=== PATIENT | male | born 1975 | race Caucasian/White ===

== ENCOUNTER 2016-11-07 16:48 | Emergency (ER) | payer OTHER ==
[~2016-11-07] VITALS: Wt 122.5 kg
[~2016-11-07 16:48] MED LIST: AMOXICILLIN500 MG PO; AUGMENTIN 875875 MG PO; CYCLOBENZAPRINE10 MG PO; FLONASE 0.05% 121 EA NAS; MOTRIN800 MG PO; Motrin,Rufen800 MG PO; NKHM; NORCO 10-325 T1 EACH PO; OMEPRAZOLE40 MG PO; PREDNISONE10 MG PO; TYLENOL SINUS 31 TAB; VICODIN 5/500 505 MG PO; VOLTAREN50 M1 PO
[2016-11-07] MEDS ORDERED: 'PARAFON FORTE500 M1 PO (17:20)
[2016-11-07] MEDS ORDERED: NAPROSYN500 MG PO (17:20)
[2016-12-12] MEDS ORDERED: CLARITIN10 MG PO (13:29)
[2016-12-12] MEDS ORDERED: PREDNISONE10 MG PO (13:29)
[2016-12-12] MEDS ORDERED: FLONASE ALLERG9.9 ML NAS (13:29)
[2016-12-12] MEDS ORDERED: ROBITUSSIN AC 110 ML PO (13:29)
[2016-12-13] MEDS ORDERED: VITAMIN D5000 I3 PO (11:10)
== END 2016-11-07 18:04 | disposition home or self-care (01) ==
LOC: ED 16:48
DX: M54.5 Low back pain (principal); I10 Essential (primary) hypertension

== ENCOUNTER 2017-11-18 14:26 | Emergency (ER) | payer OTHER ==
[~2017-11-18 14:26] MED LIST changes: +'PARAFON FORTE500 M1 PO; +CLARITIN10 MG PO; +FLONASE ALLERG9.9 ML NAS; +NAPROSYN500 MG PO; +ROBITUSSIN AC 110 ML PO; +VITAMIN D5000 I3 PO
== END 2017-11-18 15:43 | disposition home or self-care (01) ==
LOC: ED 14:26
DX: M25.562 Pain in left knee (principal)

== ENCOUNTER 2018-02-09 20:05 | Emergency (ER) | payer BC, OTHER ==
[~2018-02-09] VITALS: Ht 177.8 cm; Wt 127.5 kg
[2018-02-09] MEDS ORDERED: AMOXICILLIN500 M2 PO (20:39)
== END 2018-02-09 21:08 | disposition home or self-care (01) ==
LOC: ED 20:05
DX: J02.0 Streptococcal pharyngitis (principal)

== ENCOUNTER 2018-07-29 17:18 | Emergency (ER) | payer BC, OTHER ==
[~2018-07-29] VITALS: Wt 122.5 kg
[~2018-07-29 17:18] MED LIST changes: +AMOXICILLIN500 M2 PO
[2018-07-29 17:53] LABS: BASO # 0.1 10*3/uL (0.0-0.1); BASO % 0.5 % (0.0-1.0); EOS # 0.3 10*3/uL (0.0-0.4); EOS % 2.5 % (1.0-4.0); HEMATOCRIT 47.4 % (42.0-52.0); HEMOGLOBIN 16.8 g/dl (14.0-18.0); LYMPH # 3.3 10*3/uL (1.3-4.4); LYMPH % 29.4 % (27.0-41.0); MEAN CORPUSCULAR HGB 30.5 pg (27.0-31.0); MEAN CORPUSCULAR HGB CONC 35.4 g/dl (33.0-37.0); MONO # 0.6 10*3/uL (0.1-1.0); MONO % 5.7 % (3.0-9.0); NEUT # 6.8 10*3/uL (2.3-7.9); NEUT % 61.6 % (47.0-73.0); PLATELET COUNT AUTOMATED 231 10*3/uL (130-400); RED BLOOD COUNT 5.51 10*6/uL (4.50-5.90); RED CELL DISTRI WIDTH 13.1 % (0-14.5); WHITE BLOOD COUNT 11.1 10*3/uL (4.8-10.8)
[2018-07-29 18:08] LABS: ALBUMIN 3.7 gm/dl (3.1-4.5); ALKALINE PHOSPHATASE 76 U/L (45-117); BUN 10 mg/dl (7-24); CHLORIDE 108 mmol/L (98-107); CREATININE 1.01 mg/dL (0.70-1.30); LIPASE 135 U/L (73-393); POTASSIUM 4.1 mmol/L (3.5-5.1); SGOT/AST 28 IU/L (3-35); SGPT/ALT 57 U/L (12-78); SODIUM 140 mmol/L (136-145); TOTAL PROTEIN 7.7 gm/dL (6.4-8.2)
[2018-07-29] MEDS ORDERED: DOXYCYCLINE100 M3 PO (19:45)
[2018-07-29] MEDS ORDERED: TESSALON PERLE100 M1 PO (19:45)
[2018-07-29] MEDS ORDERED: PROVENTIL HFA6.7 GM INH (19:45)
[2018-07-29] MEDS ORDERED: PREDNISONE20 M1 PO (19:45)
== END 2018-07-29 19:46 | disposition home or self-care (01) ==
LOC: ED 17:18
PROVIDERS: Physician Assistant
DX: J40 Bronchitis, not specified as acute or chronic (principal)

== ENCOUNTER 2018-11-30 18:04 | Emergency (ER) | payer BC ==
[~2018-11-30 18:04] MED LIST changes: +DOXYCYCLINE100 M3 PO; +PREDNISONE20 M1 PO; +PROVENTIL HFA6.7 GM INH; +TESSALON PERLE100 M1 PO
[2018-11-30] MEDS ORDERED: AUGMENTIN 875875 MG PO (18:18)
== END 2018-11-30 18:26 | disposition home or self-care (01) ==
LOC: ED 18:04
DX: J32.1 Chronic frontal sinusitis (principal); H66.92 Otitis media, unspecified, left ear; F17.200 Nicotine dependence, unspecified, uncomplicated

== ENCOUNTER 2020-08-02 18:59 | Emergency (ER) | payer SELFPAY ==
[~2020-08-02] VITALS: Ht 177.8 cm; Wt 117.9 kg
[2020-08-02] MEDS ORDERED: ATORVASTATIN CA10 M1 PO (19:10)
[2020-08-02] MEDS ORDERED: HYDROCHLOROTHIA25 M1 PO (19:11)
[2020-08-02] MEDS ORDERED: Synthroid,Levo25 MCG PO (19:11)
[2020-08-02] MEDS ORDERED: METFORMIN XR500 MG PO (19:11)
== END 2020-08-02 21:13 | disposition home or self-care (01) ==
LOC: ED 18:59
DX: S62.92XA Unspecified fracture of left hand, initial encounter for closed fracture (principal); Z79.899 Other long term (current) drug therapy; W22.8XXA Striking against or struck by other objects, initial encounter; Y93.89 Activity, other specified; Y92.89 Other specified places as the place of occurrence of the external cause; Y99.2 Volunteer activity

== ENCOUNTER → 2020-08-10 | Outpatient (CLI) | payer BC ==
[~2020-08-10] MED LIST changes: +ATORVASTATIN CA10 M1 PO; +HYDROCHLOROTHIA25 M1 PO; +METFORMIN XR500 MG PO; +Synthroid,Levo25 MCG PO
== END | disposition home or self-care (01) ==
LOC: ORTHO 01:47
PROVIDERS: ATTEND Orthopaedic Surgery
DX: S62.357D Nondisplaced fracture of shaft of fifth metacarpal bone, left hand, subsequent encounter for fracture with routine healing (principal); X58.XXXD Exposure to other specified factors, subsequent encounter

== ENCOUNTER → 2020-08-25 | Outpatient (CLI) | payer BC | END | disposition home or self-care (01) | LOC: ORTHO 08-24 01:20 | PROVIDERS: ATTEND Orthopaedic Surgery | DX: S62.357D Nondisplaced fracture of shaft of fifth metacarpal bone, left hand, subsequent encounter for fracture with routine healing (principal); X58.XXXD Exposure to other specified factors, subsequent encounter ==

== ENCOUNTER 2021-06-13 17:47 | Emergency (ER) | payer BC ==
[~2021-06-13] VITALS: Wt 124.7 kg
== END 2021-06-13 21:16 | disposition home or self-care (01) ==
LOC: ED 17:47
DX: M79.672 Pain in left foot (principal); Z79.899 Other long term (current) drug therapy

== ENCOUNTER 2024-03-30 16:10 | Emergency (ER) | payer SELFPAY ==
[~2024-03-30] VITALS: Ht 177.8 cm; Wt 136.1 kg
== END 2024-03-30 19:28 | disposition left against medical advice (07) ==
LOC: ED 16:10
DX: H57.89 Other specified disorders of eye and adnexa (principal); Z53.21 Procedure and treatment not carried out due to patient leaving prior to being seen by health care provider

== ENCOUNTER → 2024-12-28 | Outpatient (CLI) | payer SELFPAY | END | disposition home or self-care (01) | LOC: RAD 11:50 | PROVIDERS: ATTEND Nurse Practitioner Family | DX: R05.3 Chronic cough (principal) ==

== ENCOUNTER 2025-01-26 10:21 | Emergency (ER) | payer OTHER ==
[~2025-01-26] VITALS: Wt 136.1 kg
[2025-01-26] MEDS ORDERED: Tdap Vaccine 0.5 ML SYR (Adult Vaccine) IM ONE (10:40)
[2025-01-26] MEDS ORDERED: CEPHALEXIN 500 MG CAP PO ONE (10:40)
[2025-01-26] MEDS ORDERED: CEPHALEXIN500 M1 PO (10:43)
[2025-01-26] MEDS ORDERED: Lidocaine Hydrochloride 30 ML VIAL IM ONE (10:45)
== END 2025-01-26 11:44 | disposition home or self-care (01) ==
LOC: ED 10:21
DX: S61.211A Laceration without foreign body of left index finger without damage to nail, initial encounter (principal); S61.213A Laceration without foreign body of left middle finger without damage to nail, initial encounter; I10 Essential (primary) hypertension; E11.9 Type 2 diabetes mellitus without complications; K21.9 Gastro-esophageal reflux disease without esophagitis; E78.00 Pure hypercholesterolemia, unspecified; Z79.899 Other long term (current) drug therapy; W31.89XA Contact with other specified machinery, initial encounter; Y93.89 Activity, other specified; Y92.89 Other specified places as the place of occurrence of the external cause; Y99.8 Other external cause status

== ENCOUNTER → 2025-06-15 | Outpatient (CLI) | payer OTHER ==
[~2025-06-15] MED LIST changes: +CEPHALEXIN500 M1 PO
[2025-06-15 13:54] LABS: BASO # 0.1 10*3/uL (0.0-0.1); BASO % 0.7 % (0.0-1.0); EOS # 0.5 10*3/uL (0.0-0.4); EOS % 5.0 % (1.0-4.0); MEAN CELL VOLUME 88.7 fl (80.0-94.0); MEAN CORPUSCULAR HGB 30.5 pg (27.0-31.0); MEAN PLATELET VOLUME 10.1 fl (9.6-12.3); MONO # 0.4 10*3/uL (0.1-1.0); MONO % 3.8 % (3.0-9.0); NEUT # 6.1 10*3/uL (2.3-7.9); NEUT % 63.0 % (47.0-73.0); NUCLEATED RED BLOOD CELL 0.0 % (0.0-0.0); NUCLEATED RED BLOOD CELL 0.0 10*3/uL (0.0-0.0); PLATELET COUNT AUTOMATED 267 10*3/uL (130-400); RED CELL DISTRI WIDTH 13.5 % (0-14.5)
[2025-06-15 14:18] LABS: BUN 11 mg/dl (9-23); LDL CHOLESTEROL 134 mg/dL (9-159); SGPT/ALT 41 U/L (5-49)
== END | disposition home or self-care (01) ==
LOC: LAB 13:23
PROVIDERS: ATTEND Nurse Practitioner Family
DX: Z12.5 Encounter for screening for malignant neoplasm of prostate (principal); Z11.4 Encounter for screening for human immunodeficiency virus [HIV]; Z13.0 Encounter for screening for diseases of the blood and blood-forming organs and certain disorders involving the immune mechanism; I10 Essential (primary) hypertension; R06.02 Shortness of breath; R60.0 Localized edema; R73.03 Prediabetes; E03.9 Hypothyroidism, unspecified; E78.2 Mixed hyperlipidemia